=== PATIENT | female | born 1995 | race Hispanic/Latino ===

== ENCOUNTER 2016-06-28 02:44 | Emergency (ER) | payer OTHER ==
[~2016-06-28] VITALS: Ht 162.6 cm; Wt 225.0 kg
[~2016-06-28 02:44] MED LIST: ASCO-294 PO; CEPH-512 PO; DOCU-41 PO; FERR-74 PO; IBUP800T28 PO; NITR100C PO; PREN-12 PO
[2016-06-28 02:47] VITALS: BP 134/81; PULSE 79; RESP 16; O2SAT 98
--- NOTE | 2016-06-28 03:00 | ED.REPORT ---
HPI-Dental/Mouth Prob Date of Service Jun 28, 2016 ED Provider: Emigdio Garcia MD Patient is a 21 year old female who presents to the ED with left lower jaw pain that began at 11pm last night. Patient states that the pain radiates to her left ear. She reports that her ear popped earlier today and she is no longer able to hear out of this ear. The patient reports taking Tylenol for her pain prior to bed, which did not improve her symptoms. Patient denies having any tooth pain or fever. Nursing Notes Stated Complaint: MOUTH PAIN Chief Complaint: Dental Nursing Notes Reviewed: Yes Allergies: Coded Allergies: No Known Allergies (Verified Allergy, Unknown, 08/25/15) Scheduled Ascorbate Calcium (Vitamin C) 500 Mg Tablet 500 MG PO BID Cephalexin (Keflex) 500 Mg Capsule 250 MG PO QID Docusate Sodium (Colace) 100 Mg Capsule 100 MG PO BID Ferrous Sulfate (Feosol) 325 Mg Tablet 325 MG PO BIDWM Nitrofurantoin Macrocrystal (Nitrofurantoin Macrocrystal) 100 Mg Capsule 100 MG PO Q12 Vit W-Ca,Fe,FA(<1 mg) ( Formula) 1 Each Tablet 1 EACH PO DAILY Scheduled PRN Ibuprofen (Ibuprofen) 800 Mg Tablet 800 MG PO BID PRN PRN For Pain General Time Seen by MD: 02:56 Chief Complaint Other (jaw and ear pain) Hx Obtained From: Patient Arrived By: Walk-in Onset Occurred: 1 - 4 hours ago Symptom Duration: Since onset Quality: Painful Severity: Current: Moderate Severity: Maximum: Severe Recent Healthcare: No recent doctor visit, No recent hospitalization Similar Sx Previous: No Past Medical History Past Medical History Gestational diabetes Preeclampsia Polysubstance abuse (THC, cocaine) - reportedly not used in years Asthma Past Surgical History Denies Smoking History Never Smoker Social History Alcohol Use: Denies alcohol use Drug Use: Denies drug use Other Social History: Good social support, Lives with children, Local resident Ambulatory Status Independent Review of Systems Constitutional: Denies: Chills, Fever Ears / Nose / Throat: Reports: Earache left, Denies: Earache right, Mouth pain, Toothache Complete sys rev & neg: except as marked. Physical Exam Initial Vital Signs Vital Signs (First) Date Time Temp Pulse Resp B/P Pulse Ox O2 Delivery O2 Flow Rate FiO2 06/28/16 02:47 36.5 79 16 134/81 98 Room Air Initial VS: Reviewed, Vital signs normal Head / Eyes: Atraumatic, Normocephalic, PERRL Extremities: Vascular intact, Neuro intact Skin: Warm, Dry, No cyanosis Neurologic: Alert, Oriented, Nonfocal Psychiatric: Mood/affect normal, Behavior normal, Normal thought content ENT: Airway patent, Pharynx NL Dental / Gums: Positive: Dental impaction (impacted noninfected wisdom tooth, left lower jaw) Right Ear / Mastoid: Negative: Tympanic membrane red Left Ear / Mastoid: Positive: Tympanic membrane red (dull and thickened) Neck: Supple, No adenopathy General/Constitutional: Awake, Alert, No acute distress Respiratory / Chest: No respiratory distress, No stridor Cardiovascular: Heart rate NL, Regular rhythm Re-Eval/Medical Decision Med Decision/Clinical Course Uncomplicated left otitis media with referred pain to the left jaw. There does not appear to be a dental abnormality. The left lower wisdom tooth is impacted but the gum does not appear inflamed or abscess. Amoxicillin 500 mg by mouth 3 times a day, #30 dispensed. Follow up with her regular doctor for ear recheck. Source of Hx: Old records Re-Evaluation/Progress : Time of Eval: 03:07 Patient Status: Condition improved Re-Evaluation/Progress Note: The patient has an ear infection, which will be treated with antibiotics. Lidocaine drops will be placed in her ear to improve her pain. Patient understands and agrees with the plan to be discharged home. Discharge instructions and follow-up discussed. All questions were addressed. Return to the ED warnings given. Counseled Regarding: Diagnosis, Need for follow-up, When/why to return to ED Discharge & Departure Primary Impression: Otitis media Otitis media type: suppurative Laterality: left Chronicity: acute Recurrence: not specified Spontaneous tympanic membrane rupture: without spontaneous rupture Qualified Code: H66.002 - Acute suppurative otitis media without spontaneous rupture of ear drum, left ear Disposition: Home Discharge Condition All VS Reviewed: Yes Condition: Stable Patient Instructions: Otitis Media (ED) Additional Instructions: Left ear infection with referred pain to the left jaw. There does not appear to be a dental abnormality. Amoxicillin 500 mg by mouth 3 times a day, #30 dispensed. Follow up with your regular doctor for ear recheck. Referrals: Pam Santana MD (PCP) Scribe Attestation Portions of this note were transcribed by Shara Henderson. I, Dr. Garcia personally performed the history, physical exam and medical decision-making; I reviewed and confirmed the accuracy of the information in the transcribed note. Signed by: Joseph Orozco, 06/28/2016 0318 copies to: Pam Santana MD, Howard L MD Jun 28, 2016 02:59 Shara Henderson Jun 28, 2016 03:07
[2016-06-28 03:36] VITALS: BP 134/81; PULSE 79; RESP 16; O2SAT 98
[2016-06-28] MEDS ORDERED: _Amoxicillin 500 mg Capsule PO SCH (08:30)
== END 2016-06-28 03:36 | disposition home or self-care (01) ==
LOC: SED 02:44
DX: H66.002 Acute suppurative otitis media without spontaneous rupture of ear drum, left ear (principal); J45.909 Unspecified asthma, uncomplicated

== ENCOUNTER 2016-10-16 06:49 | Emergency (ER) | payer OTHER ==
[~2016-10-16] VITALS: Ht 162.6 cm; Wt 97.7 kg
[2016-10-16 06:57] VITALS: BP 118/79; PULSE 76; RESP 17; O2SAT 99
--- NOTE | 2016-10-16 07:03 | ED.REPORT ---
HPI-Chest Pain Under 40 Date of Service Oct 16, 2016 ED Provider: Julienne Navarro MD Patient is a 21 year old female who presents to the ED complaining of R sided, sharp chest pain onset 3 days ago while laying down. Her pain is worse with inspiration. She denies fever, chills, cough, extremity swelling, breast tenderness or discharge, or any other symptoms. She has not taken medications for her symptoms. She does not recall a mechanism of injury. Patient has an IUD for control. Nursing Notes Stated Complaint: SHARP PAIN LEFT SIDE Chief Complaint: Chest Pain Nursing Notes Reviewed: Yes Allergies: Coded Allergies: No Known Allergies (Verified Allergy, Unknown, 10/16/16) Scheduled Ascorbate Calcium (Vitamin C) 500 Mg Tablet 500 MG PO BID Cephalexin (Keflex) 500 Mg Capsule 250 MG PO QID Docusate Sodium (Colace) 100 Mg Capsule 100 MG PO BID Ferrous Sulfate (Feosol) 325 Mg Tablet 325 MG PO BIDWM Nitrofurantoin Macrocrystal (Nitrofurantoin Macrocrystal) 100 Mg Capsule 100 MG PO Q12 Vit W-Ca,Fe,FA(<1 mg) ( Formula) 1 Each Tablet 1 EACH PO DAILY Scheduled PRN Ibuprofen (Ibuprofen) 800 Mg Tablet 800 MG PO BID PRN PRN For Pain General Time Seen by MD: 07:02 Chief Complaint Chest pain Hx Obtained From: Patient Arrived By: Walk-in Sudden in Onset?: Yes Onset Occurred: 3 days ago Symptom Duration: Since onset Risk Factors )( CAD Risk Stratification No Diabetes mellitus, No Hyperlipidemia, No Hypertension, No Known CAD Risk factors reviewed )( PE Risk Stratification No Previous DVT, No Previous PE Risk factors reviewed Past Medical History Past Medical History Notes: [facility] Past Medical History Gestational diabetes Preeclampsia Polysubstance abuse (THC, cocaine) - reportedly not used in years Asthma Past Surgical History Denies Smoking History Never Smoker Social History Alcohol Use: Denies alcohol use Drug Use: Denies drug use, Cocaine, THC Other Social History: Good social support, Lives with children, Local resident Ambulatory Status Independent Review of Systems Review of Systems Note: -breast tenderness or discharge Constitutional: Denies: Chills, Fever Respiratory: Denies: Non-productive cough Cardiovascular: Reports: Chest pain Musculoskeletal: Denies: Extremity swelling Complete sys rev & neg: except as marked. Physical Exam Initial Vital Signs Vital Signs (First) Date Time Temp Pulse Resp B/P Pulse Ox O2 Delivery O2 Flow Rate FiO2 10/16/16 06:57 37.2 76 17 118/79 99 Room Air Initial VS: Reviewed, Vital signs normal Head / Eyes: Atraumatic, Normocephalic Neck: Full range of motion Abdomen / GI: Soft, Non-tender Skin: Warm, Dry Neurologic: Alert, Oriented, Nonfocal Psychiatric: Mood/affect normal, Behavior normal, Normal thought content General/Constitutional: Awake, Alert, No acute distress, Well appearing, Well developed Respiratory / Chest: Breath sounds NL, Breath sounds = bilat, No respiratory distress, No chest tenderness No breast tenderness Cardiovascular: Heart rate NL, Regular rhythm, Heart sounds NL Interpretation & Diagnostics ECG Interpretation ECG Interpretation: Sinus rate 83 no abnormalities Time: 07:12 Interpreted by: ED physician X-Ray Chest Interpretation Chest Xray Interpretation: IMPRESSION: No acute cardiopulmonary abnormality Dictated by: Shaun Henriquez M.D. on 10/16/2016 at 8:17 Approved by: Shaun Henriquez M.D. on 10/16/2016 at 8:18 View: Portable, 1 view Interpretation / Wet Read by: Interpret - Radiologist Re-Eval/Medical Decision Med Decision/Clinical Course Musculoskeletal right anterior chest wall pain. No evidence of costochondritis, no swelling or inflammation related to breast tissue or skin no rashes EKG is unremarkable chest x-ray is unremarkable no concerns for more significant pathology. Questions answered. Re-Evaluation/Progress : Time of Eval: 08:26 Re-Evaluation/Progress Note: Discussed plan for discharge. Patient understands and agrees with plan. All questions addressed at this time. Counseled Regarding: Diagnosis, Lab results, Need for follow-up, When/why to return to ED Discharge & Departure Primary Impression: Right-sided chest wall pain Disposition: Home Discharge Condition All VS Reviewed: Yes Condition: Stable Additional Instructions: Thank you for entrusting us with your care. Take Ibuprofen (up to 800 mg 3 times a day). If your symptoms do not resolve in a week, see your primary doctor. Referrals: [facility] Attestation Portions of this note were transcribed by Nancy Doyle. I, Dr. Navarro personally performed the history, physical exam and medical decision-making; I reviewed and confirmed the accuracy of the information in the transcribed note. Signed by: Nancy Doyle 10/16/16, 0932 copies to: [facility],[place] Julienne Chacko MD Oct 16, 2016 07:03 NANCY DOYLE Oct 16, 2016 07:12
--- NOTE | 2016-10-16 08:20 | DRSVH ---
PROCEDURE: X-RAY CHEST ONE VIEW, PORTABLE ([id number]) INDICATIONS: cheast pain TECHNIQUE: One view of the chest was acquired. COMPARISON: None. FINDINGS: Surgical changes and devices: None. Lungs and pleura: No pleural effusions or pneumothorax. Lungs are clear. Mediastinum: Mediastinal contours appear normal. Heart size is normal. Bones and chest wall: No suspicious bony lesions. Overlying soft tissues appear unremarkable. IMPRESSION: No acute cardiopulmonary abnormality Dictated by: Shaun Henriquez M.D. on 10/16/2016 at 8:17 Approved by: Shaun Henriquez M.D. on 10/16/2016 at 8:18
[2016-10-16 09:05] VITALS: BP_SYST 82; PULSE 82; RESP 20; O2SAT 97
== END 2016-10-16 08:30 | disposition home or self-care (01) ==
LOC: SED 06:49
DX: R07.89 Other chest pain (principal); J45.909 Unspecified asthma, uncomplicated